=== PATIENT | female | born 1995 | race Caucasian/White ===

== ENCOUNTER 2022-01-10 15:32 | Emergency (ER) | payer MEDICAID ==
[~2022-01-10] VITALS: Ht 175.3 cm; Wt 68.1 kg
[2022-01-10 16:18] VITALS: BP 137/115
[2022-01-10] MEDS ORDERED: CEPH-585 PO (17:29)
[2022-01-10] MEDS ORDERED: TETanus/Pertussis (Acell)/Diphther VAC/PF (Tdap-Adult) 0.5ml syringe IMVAC ONE (17:30)
[2022-01-10] MEDS ORDERED: LIDOcaine 1% 30ml preserv. free vial IJ ONE (17:30)
[2022-01-10] MEDS ORDERED: cephalexin 250mg capsule PO ONE (17:45)
== END 2022-01-10 18:13 | disposition home or self-care (01) ==
LOC: ER 15:34
DX: L02.414 Cutaneous abscess of left upper limb (principal); Z79.2 Long term (current) use of antibiotics
CPT/HCPCS: 10060; 90471; 90715; 99283